=== PATIENT | female | born 1995 | race Caucasian/White ===

== ENCOUNTER 2017-04-12 21:53 | Emergency (ER) | payer OTHER ==
[~2017-04-12] VITALS: Ht 154.9 cm; Wt 76.4 kg
[2017-04-12] MEDS ORDERED: PRE-TAB3 PO (22:01)
--- NOTE | 2017-04-13 00:30 | REPUSA ---
CLINICAL HISTORY: determination. TECHNIQUE: Transabdominal ultrasound of the pelvis was performed. FINDINGS: Single, live intrauterine gestation. Estimated gestational age is 9 weeks and one day. pole measurement 24 mm. heart rate 173 beats per minute. No subchorionic hemorrhage was identified. No significant abnormality is identified in the maternal adnexa and cul-de-sac regions. Estimated delivery date on 11/14/2017. IMPRESSION: Single, live intrauterine gestation. No abnormality seen.
[2017-04-13] MEDS ORDERED: MACR100C43 PO (01:06)
[2017-04-13 01:12] VITALS: BP 107/67
[2017-04-13] MEDS ORDERED: NITROFURANTOIN (MACROBID) 100 MG CAP PO ONE (01:15)
== END 2017-04-13 01:16 | disposition home or self-care (01) ==
LOC: M ED 21:53
DX: O23.41 Unspecified infection of urinary tract in pregnancy, first trimester (principal); O26.891 Other specified pregnancy related conditions, first trimester; N89.9 Noninflammatory disorder of vagina, unspecified; O99.611 Diseases of the digestive system complicating pregnancy, first trimester; K58.9 Irritable bowel syndrome, unspecified; Z3A.09 9 weeks gestation of pregnancy; Z88.8 Allergy status to other drugs, medicaments and biological substances

== ENCOUNTER 2018-06-13 00:09 | Emergency (ER) | payer OTHER ==
[2018-06-13 00:40] LABS: CONTROL LINE UCG INT CTR LINE PRESENT; URINE PREG TEST POSITIVE (NEGATIVE)
[2018-06-13 00:43] LABS: KETONE, URINE AUTO RFX NEGATIVE (NEGATIVE); LEUKOCYTE ESTERASE UR AUTO RFX NEGATIVE (NEGATIVE); MUCUS, URINE RFX SMALL (NEGATIVE); NITRITE, URINE AUTO RFX NEGATIVE (NEGATIVE); RBC, URINE AUTO RFX 1 /HPF (0-3); SPECIFIC GRAVITY UR AUTO RFX 1.029 (1.002-1.035); SQUAM EPITHELIAL CELL UR AURFX 2 /HPF (0-6); WBC, URINE AUTO RFX 1 /HPF (0-3)
[2018-06-13 01:29] LABS: BASO % 0.5 % (0.0-1.0); EOS # 0.2 10^3/uL (0.0-0.50); EOS % 2.4 % (0.0-3.0); HEMATOCRIT 34.9 % (36.0-47.0); HEMOGLOBIN 11.5 g/dl (12.0-15.5); IMMATURE GRANULOCYTE % 0.2 % (0-3.0); LYMPH # 4.2 10^3/uL (1.5-6.5); LYMPH % 47.3 % (24.0-44.0); MEAN CORPUSCULAR HEMOGLOBIN 29.9 pg (27.0-33.0); MEAN CORPUSCULAR VOLUME 90.6 fl (80.0-96.0); MONO # 0.7 10^3/uL (0.0-0.8); MONO % 8.1 % (0.0-5.0); NEUTROPHILS # 3.7 10^3/uL (1.8-7.7); NEUTROPHILS % 41.5 % (36.0-66.0); PLATELET COUNT, AUTOMATED 306 10^3/uL (150-450); RED BLOOD COUNT 3.85 10^6/uL (4.00-5.40); RED CELL DISTRIBUTION WIDTH 12.4 % (11.5-14.5); WHITE BLOOD COUNT 8.8 10^3/uL (4.0-10.0)
[2018-06-13 02:04] LABS: HCG, SERUM QUANTITATIVE 340 MIU/ML
[2018-06-13 04:51] LABS: CHLAMYDIA DNA AMPLIFICATION NEGATIVE (NEGATIVE); GC DNA AMPLIFICATION NEGATIVE (NEGATIVE)
== END 2018-06-13 06:00 | disposition home or self-care (01) ==
LOC: M ED 00:09
DX: O20.0 Threatened abortion (principal); Z79.899 Other long term (current) drug therapy; Z88.8 Allergy status to other drugs, medicaments and biological substances
CPT/HCPCS: 76801

== ENCOUNTER → 2018-06-15 | Outpatient (CLI) | payer OTHER ==
[~2018-06-15] MED LIST: MACR100C43 PO; PRE-TAB3 PO
== END ==
LOC: M LAB 15:58
PROVIDERS: ATTEND Emergency Medicine
DX: O20.0 Threatened abortion (principal)

== ENCOUNTER → 2018-10-30 | Outpatient (CLI) | payer OTHER | LOC: M SMT 14:47 | PROVIDERS: ATTEND Advanced Practice Midwife | DX: Z34.82 Encounter for supervision of other normal pregnancy, second trimester (principal); Z3A.00 Weeks of gestation of pregnancy not specified ==

== ENCOUNTER → 2018-11-08 | Outpatient (CLI) | payer OTHER ==
[2018-11-08 17:22] LABS: BASO % 0.3 % (0.0-1.0); EOS # 0.1 10^3/uL (0.0-0.50); EOS % 1.4 % (0.0-3.0); HEMOGLOBIN 9.6 g/dl (12.0-15.5); LYMPH # 1.9 10^3/uL (1.5-6.5); LYMPH % 22.2 % (24.0-44.0); MEAN CORPUSCULAR HEMOGLOBIN 29.6 pg (27.0-33.0); MEAN CORPUSCULAR VOLUME 95.7 fl (80.0-96.0); MONO # 0.5 10^3/uL (0.0-0.8); MONO % 6.1 % (0.0-5.0); NEUTROPHILS # 6.1 10^3/uL (1.8-7.7); NEUTROPHILS % 69.7 % (36.0-66.0); PLATELET COUNT, AUTOMATED 318 10^3/uL (150-450); RED BLOOD COUNT 3.24 10^6/uL (4.00-5.40); WHITE BLOOD COUNT 8.7 10^3/uL (4.0-10.0)
== END ==
LOC: M SMT 13:04
PROVIDERS: ATTEND Advanced Practice Midwife
DX: Z34.82 Encounter for supervision of other normal pregnancy, second trimester (principal); Z3A.00 Weeks of gestation of pregnancy not specified

== ENCOUNTER 2018-11-22 13:20 | Outpatient (CLI) | payer OTHER ==
[~2018-11-22] VITALS: Ht 154.9 cm; Wt 84.2 kg
[2018-11-22] MEDS ORDERED: ACETAMINOPHEN 500 MG TAB PO ONE (15:30)
--- NOTE | 2018-11-24 00:44 | NUR ---
L&D Triage Note DOS 11/22/2018 S: 23yo at 28w3d presents to L&D after a fall where she landed on her side. Denies vaginal bleeding, LOF or ctx. Reports active movement. O: vss, AF Cat 1 tracing with prolong monitoring Gen: well appearing abd: gravid, nttp A/P: 23yo s/p fall with reassuring status -home with PTL precautions -f/u at next OB appt Magui Soler MD
== END 2018-11-22 15:30 | disposition home or self-care (01) ==
LOC: M LDO 13:20
PROVIDERS: ATTEND Obstetrics & Gynecology
DX: Z04.3 Encounter for examination and observation following other accident (principal); W19.XXXA Unspecified fall, initial encounter; Y92.009 Unspecified place in unspecified non-institutional (private) residence as the place of occurrence of the external cause; Y93.89 Activity, other specified; Y99.8 Other external cause status; Z3A.28 28 weeks gestation of pregnancy

== ENCOUNTER 2019-01-14 12:15 | Outpatient (CLI) | payer OTHER ==
[~2019-01-14] VITALS: Ht 154.9 cm; Wt 88.9 kg
[2019-01-14 12:40] VITALS: BP 109/67
== END 2019-01-14 13:15 | disposition home or self-care (01) ==
LOC: M LDO 12:15
PROVIDERS: ATTEND Specialist
DX: O26.893 Other specified pregnancy related conditions, third trimester (principal); R10.9 Unspecified abdominal pain; O47.03 False labor before 37 completed weeks of gestation, third trimester; Z3A.36 36 weeks gestation of pregnancy

== ENCOUNTER → 2019-01-18 | Outpatient (REF) | payer OTHER | LOC: M LAB REF 13:21 | PROVIDERS: ATTEND Advanced Practice Midwife | DX: Z34.83 Encounter for supervision of other normal pregnancy, third trimester (principal) ==

== ENCOUNTER 2019-02-05 15:20 | Inpatient (IN) | payer OTHER ==
[~2019-02-05] VITALS: Ht 154.9 cm; Wt 90.7 kg
[2019-02-05 15:36] VITALS: BP 130/68
[2019-02-05] MEDS ORDERED: LACTATED RINGER'S 1000 ML IV STA (16:00)
[2019-02-05] MEDS ORDERED: SLF 3 ML SYR IV PRN (16:15)
[2019-02-05] MEDS ORDERED: FERR325T3 PO (16:22)
[2019-02-05 16:52] LABS: HEMATOCRIT 26.2 % (36.0-47.0); HEMOGLOBIN 8.3 g/dl (12.0-15.5); MEAN CORPUSCULAR HEMOGLOBIN 27.3 pg (27.0-33.0); MEAN CORPUSCULAR HGB CONC 31.7 g/dl (32.0-36.5); MEAN CORPUSCULAR VOLUME 86.2 fl (80.0-96.0); PLATELET COUNT, AUTOMATED 274 10^3/uL (150-450); RED BLOOD COUNT 3.04 10^6/uL (4.00-5.40); WHITE BLOOD COUNT 9.1 10^3/uL (4.0-10.0)
[2019-02-05] MEDS: miSOPROStol 50 MCG 1/2 TAB (S0191) PO SCH ×2 (17:25→21:53)
[2019-02-05] MEDS ORDERED: SLF 3 ML SYR IV SCH (22:00)
[2019-02-06] VITALS (9 sets, daily range): BP systolic 111–141; BP diastolic 63–94
[2019-02-06] MEDS ORDERED: BUTORPHANOL 2 MG/ML INJ (J0595) IV ONE ×2 (01:00→09:00)
[2019-02-06] MEDS ORDERED: PROMETHAZINE INJ 25 MG/ML VIAL (J2550) IM ONE (01:00)
[2019-02-06] MEDS: miSOPROStol 50 MCG 1/2 TAB (S0191) PO SCH (02:00)
--- NOTE | 2019-02-06 06:55 | IPNPDOC ---
Obstetrical Progress Note Date of Service Feb 06, 2019 Subjective Patient reports feeling contractions. Objective Vital Signs Date Time Temp Pulse Resp B/P (MAP) Pulse Ox O2 Delivery O2 Flow Rate FiO2 02/06/19 01:06 20 02/05/19 15:36 97.2 121 130/68 (88) Assessment Heart Rate (FHR): 120 Variability: Moderate Accelerations: Positive Decelerations: None Heart Rate Tracing: Category I Tocometer Contractions: Yes Frequency: regular Sterile Vaginal Examination Dilation: 1cm Effacement (%): other (75%) Station: -2 Cervical Consistency: Medium Cervical Position: Middle Postion/Presentation: Cephalic presentation Assessment and Plan EGA at Admission: 39.1 Weeks & Days 39.2 weeks today Status: Reassuring Group B Streptococcus: Negative Anticipate: Vaginal Delivery Additional Comments Hayes bulb inserted with 50/40 cc of NS. IV Pitocin to be started per order. Patient tolerated procedure well. MICHAEL ALBERT CNM Feb 06, 2019 06:55
[2019-02-06] MEDS ORDERED: OXYTOCIN DRIP 30 UNITS in IV 1 EA IV SCH (07:00)
[2019-02-06] MEDS: LR 1,000 ML IV SCH ×2 (08:45→19:02)
[2019-02-06] MEDS ORDERED: PROMETHAZINE INJ 25 MG/ML VIAL (J2550) IV ONE (09:00)
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
[2019-02-06] MEDS ORDERED: FENTANYL 2MCG/ML ROPIVACAINE 0.2% IN 0.9% NACL 100ML IVBAG As Ordered ONE (16:35)
[2019-02-06] MEDS ORDERED: ePHEDrine SULFATE 25 MG/5 ML(5MG/ML) SYRINGE IV PRN (17:45)
[2019-02-06] MEDS ORDERED: diphenhydrAMINE INJ 50MG/ML VIAL (J1200) IV PRN (17:45)
[2019-02-06] MEDS ORDERED: EPIDURAL COMMENT XX SCH (17:45)
[2019-02-06] MEDS ORDERED: EPIDURAL/PCA KEYS XX PRN (17:45)
[2019-02-06] MEDS ORDERED: ONDANSETRON 4MG/2ML VIAL (J2405) IV PRN (17:45)
[2019-02-06] MEDS ORDERED: FENTANYL/ROPIVACAINE/NACL BAG 100 ML EPIDURAL SCH (17:45)
[2019-02-06] MEDS ORDERED: NALOXONE INJ 0.4 MG/1 ML VIAL (J2310) IV PRN (17:45)
[2019-02-06] MEDS ORDERED: REFRIGERATOR IV KEYS XX PRN (17:45)
[2019-02-07] MEDS ORDERED: DOCUSATE SODIUM 100 MG CAP PO PRN (00:15)
[2019-02-07] MEDS ORDERED: OXYTOCIN DRIP 30 UNITS in IV 1 EA IV ONE (00:15)
[2019-02-07] MEDS ORDERED: METHYLERGONOVINE MALEATE 0.2 MG TAB PO PRN (00:15)
[2019-02-07] MEDS ORDERED: IBUPROFEN 600 MG TAB PO PRN (00:15)
[2019-02-07] MEDS ORDERED: ACETAMINOPHEN TAB 650MG DOSE (2X325MG) PO PRN (00:15)
[2019-02-07] MEDS ORDERED: ACETAMINOPHEN 500 MG TAB PO PRN (00:15)
[2019-02-07] MEDS ORDERED: DIBUCAINE 1% OINTMENT 30GM TOP PRN (00:15)
[2019-02-07] MEDS ORDERED: ONDANSETRON 4MG/2ML VIAL (J2405) IV PRN (00:15)
[2019-02-07] MEDS ORDERED: RHOGAM 300 MCG (1500 IU) INJ (J2790) IM SCH (00:15)
[2019-02-07] MEDS ORDERED: MEASLES,MUMPS,RUBELLA VACCINE INJ (MMR-II) (90707) SC SCH (00:15)
[2019-02-07 00:19] VITALS: BP 127/74
[2019-02-07 00:34] VITALS: BP 131/76
[2019-02-07 00:49] VITALS: BP 129/78
[2019-02-07 03:13] VITALS: BP 116/67
[2019-02-07 06:08] VITALS: BP 98/51
[2019-02-07] MEDS ORDERED: LIDOCAINE 1% MDV 20ML VIAL As Ordered ONE (07:52)
[2019-02-07 07:53] LABS: HEMATOCRIT 22.6 % (36.0-47.0); MEAN CORPUSCULAR HEMOGLOBIN 26.4 pg (27.0-33.0); MEAN CORPUSCULAR VOLUME 85.3 fl (80.0-96.0); PLATELET COUNT, AUTOMATED 249 10^3/uL (150-450); RED BLOOD COUNT 2.65 10^6/uL (4.00-5.40); WHITE BLOOD COUNT 15.8 10^3/uL (4.0-10.0)
[2019-02-07] MEDS ORDERED: PERCOCET 5MG/325MG TAB PO PRN ×2 (08:15)
[2019-02-07] MEDS: PRENATAL VITAMINS CHEWABLE TABLET PO SCH (08:26)
[2019-02-07] MEDS: IBUPROFEN 800 MG TAB PO PRN ×2 (08:28→20:51)
[2019-02-07] MEDS: FERROUS GLUCONATE 324 MG TAB PO SCH ×3 (11:13→20:51)
[2019-02-07 18:00] VITALS: BP 110/62
--- NOTE | 2019-02-07 19:38 | DN ---
DATE: 02/06/2019 PREDELIVERY DIAGNOSIS: 39 weeks, labor induction. POSTDELIVERY DIAGNOSIS: Delivered. PROCEDURE: Spontaneous vaginal delivery. CARGO AGENT: Dr. Jaiden Balderas ANESTHESIA: Epidural. ESTIMATED BLOOD LOSS: 400 mL. FINDINGS: A 7-pound, 15-ounce male infant, scores of 9 and 9. DELIVERY SUMMARY: After a 40-minute second stage, the patient had spontaneous delivery of a 7-pound, 15-ounce male, scores 9 and 9, under epidural anesthesia. Nuchal cord times one was tight but was able to be reduced manually. The shoulders delivered with ease. The cried immediately and was handed to the mother. The cord was doubly clamped and cut. The placenta delivered spontaneously and appeared to be intact. The patient received IV pitocin immediately after delivery of the placenta. There were no vaginal lacerations present. Sponge counts were correct.
[2019-02-08 06:03] VITALS: BP 104/61
[2019-02-08] MEDS ORDERED: IBUP80TA PO (06:56)
[2019-02-08] MEDS ORDERED: FERR32TA PO (06:56)
[2019-02-08] MEDS: FERROUS GLUCONATE 324 MG TAB PO SCH (08:05)
[2019-02-08] MEDS: PRENATAL VITAMINS CHEWABLE TABLET PO SCH (08:05)
[2019-02-08] MEDS: IBUPROFEN 800 MG TAB PO PRN (08:06)
== END 2019-02-08 13:45 | disposition home or self-care (01) | DRG 560 ==
LOC: M LDI 15:20 → M OBS 02-07 02:46
PROVIDERS: ADMIT Advanced Practice Midwife; ATTEND Advanced Practice Midwife
PROC: 3E033VJ Introduction of Other Hormone into Peripheral Vein, Percutaneous Approach (ICD-10-PCS; 2019-02-05)
PROC: 10E0XZZ Delivery of Products of Conception, External Approach (ICD-10-PCS; principal; 2019-02-06)
DX: O26.899 Other specified pregnancy related conditions, unspecified trimester (principal); O99.344 Other mental disorders complicating childbirth; F32.9 Major depressive disorder, single episode, unspecified; Z37.0 Single live birth; Z3A.39 39 weeks gestation of pregnancy; D64.9 Anemia, unspecified; M62.059 Separation of muscle (nontraumatic), unspecified thigh; O99.02 Anemia complicating childbirth; Z14.1 Cystic fibrosis carrier; O69.89X0 Labor and delivery complicated by other cord complications, not applicable or unspecified

== ENCOUNTER → 2019-04-23 | Outpatient (CLI) | payer OTHER ==
[~2019-04-23] MED LIST changes: +FERR325T3 PO; +FERR32TA PO; +IBUP80TA PO
== END ==
LOC: M SMT 13:42
PROVIDERS: ATTEND Advanced Practice Midwife
DX: N91.2 Amenorrhea, unspecified (principal)

== ENCOUNTER → 2019-06-14 | Outpatient (REF) | payer OTHER ==
[2019-06-15 12:17] LABS: HCG, SERUM QUALITATIVE NEGATIVE (NEGATIVE)
== END ==
LOC: M SFHCLERA 19:35
PROVIDERS: ATTEND Physician Assistant Medical
DX: N92.6 Irregular menstruation, unspecified (principal)
CPT/HCPCS: 81025; 84703; G0463

== ENCOUNTER → 2019-07-09 | Outpatient (CLI) | payer OTHER | LOC: M PLALAB 14:48 | PROVIDERS: ATTEND Advanced Practice Midwife | DX: N91.2 Amenorrhea, unspecified (principal) ==

== ENCOUNTER → 2019-07-11 | Outpatient (CLI) | payer OTHER | LOC: M LRY 16:47 | PROVIDERS: ATTEND Advanced Practice Midwife | DX: N91.2 Amenorrhea, unspecified (principal) ==

== ENCOUNTER → 2019-08-18 | Outpatient (REF) | payer OTHER ==
[2019-08-18 19:07] LABS: HEMATOCRIT 33.5 % (36.0-47.0); MEAN CORPUSCULAR HEMOGLOBIN 28.2 pg (27.0-33.0); MEAN CORPUSCULAR HGB CONC 32.8 g/dl (32.0-36.5); MEAN CORPUSCULAR VOLUME 85.9 fl (80.0-96.0); PLATELET COUNT, AUTOMATED 333 10^3/uL (150-450); WHITE BLOOD COUNT 8.5 10^3/uL (4.0-10.0)
[2019-08-18 20:53] LABS: CHLAMYDIA DNA AMPLIFICATION NEGATIVE (NEGATIVE); GC DNA AMPLIFICATION NEGATIVE (NEGATIVE)
[2019-08-20 10:30] LABS: HEPATITIS B SURFACE ANTIGEN NEGATIVE (NEGATIVE); HEPATITIS C VIRUS ABY INDEX < 0.0 INDEX (<0.8); HIV 1&2 SCREEN CENTAUR NEGATIVE (NEGATIVE); RUBELLA IgG QUALITATIVE IMMUNE (IMMUNE)
== END ==
LOC: M PLALAB 16:08
PROVIDERS: ATTEND Advanced Practice Midwife
DX: Z34.81 Encounter for supervision of other normal pregnancy, first trimester (principal)

== ENCOUNTER → 2019-09-05 | Outpatient (REF) | payer OTHER | LOC: M SFHCWAGY 13:37 | PROVIDERS: ATTEND Advanced Practice Midwife | DX: O99.341 Other mental disorders complicating pregnancy, first trimester (principal); Z3A.00 Weeks of gestation of pregnancy not specified ==

== ENCOUNTER → 2019-10-22 | Outpatient (CLI) | payer OTHER ==
--- NOTE | 2019-10-23 01:16 | REP ---
OBSTETRIC SONOGRAPHY: HISTORY: Supervision of for anatomy. FINDINGS: Scanning through the gravid uterus demonstrates a single living intrauterine gestation in a transverse lie, head to the maternal left. motion is observed, and heart rate is recorded at 143 beats per minute. The placenta is posterior left lateral without evidence of previa or abruption, grade 0. Amniotic fluid is subjectively normal. Closed cervical length is 3.4 cm measured transabdominally. No extrauterine abnormality is observed. Exam quality is inhibited to some degree by position. heart views are less than optimally seen due to position. The following additional anatomic structures are identified and felt to be sonographically unremarkable: cranium, choroid plexus, cavum, cerebellum and posterior fossa, face and profile, diaphragm, left-sided stomach, abdominal wall cord insertion, three-vessel cord, kidneys and bladder, spine, upper and lower extremities. BIOMETRY CHART: BPD 4.6 cm = 19 weeks 6 days Head circumference 16.6 cm = 19 weeks 2 days Abdominal circumference 14.1 cm = 19 weeks 3 days Femur length 3.1 cm = 19 weeks 5 days Humeral length 2.9 cm = 19 weeks 4 days Cerebellar diameter 1.9 cm = 18 weeks 3 days HC/AC ratio Normal, 1.18 Cephalic index Normal, 0.78 Estimated weight 297 grams, 0 pounds 10 ounces, 51st percentile for 19 weeks 3 days. IMPRESSION: Single living intrauterine gestation at 19 weeks 3 days by today's composite criteria. NGHIA by today's criteria 03/14/2020. heart views less than optimally achieved. Transverse lie.
== END ==
LOC: M WHC 10:22
PROVIDERS: ATTEND Obstetrics & Gynecology
DX: O32.2XX0 Maternal care for transverse and oblique lie, not applicable or unspecified (principal); Z36.89 Encounter for other specified antenatal screening; Z3A.19 19 weeks gestation of pregnancy

== ENCOUNTER → 2019-11-29 | Outpatient (CLI) | payer OTHER ==
--- NOTE | 2019-11-30 02:42 | REP ---
Clinical: Anatomical evaluation. Comparison: 10/22/2019 . Findings: Examination demonstrates a single live intrauterine in breech presentation. motion is identified by technologist. Placenta is noted anterior and grade zero without evidence for placenta previa or abruption. Amniotic fluid volume is normal. Cervix measures 3.4 cm in length and appears closed. No evidence for nuchal cord. Gestational age by LMP 24 weeks 6 days with NGHIA 03/14/2020 . Gestational age by current measurements 25 weeks 0 days with NGHIA 03/13/2020 . FHR equals 130 beats per minute. Estimated weight 814 grams ( 63rd percentile). Impression: Single live intrauterine in breech presentation demonstrating appropriate interval growth. Limited evaluation of the heart/ventricular outflow tracts again noted due to positioning.
== END ==
LOC: M WHC 15:03
PROVIDERS: ATTEND Nurse Practitioner Women's Health
DX: Z36.2 Encounter for other antenatal screening follow-up (principal); O32.1XX0 Maternal care for breech presentation, not applicable or unspecified; Z3A.24 24 weeks gestation of pregnancy

== ENCOUNTER → 2019-12-21 | Outpatient (REF) | payer OTHER ==
[2019-12-21 19:18] LABS: HEMOGLOBIN 9.2 g/dl (12.0-15.5); MEAN CORPUSCULAR HEMOGLOBIN 27.3 pg (27.0-33.0); MEAN CORPUSCULAR HGB CONC 30.7 g/dl (32.0-36.5); PLATELET COUNT, AUTOMATED 318 10^3/uL (150-450); RED BLOOD COUNT 3.37 10^6/uL (4.00-5.40); WHITE BLOOD COUNT 9.8 10^3/uL (4.0-10.0)
== END ==
LOC: M PLALAB 12:31
PROVIDERS: ATTEND Nurse Practitioner Women's Health
DX: Z3A.22 22 weeks gestation of pregnancy (principal)

== ENCOUNTER → 2019-12-26 | Outpatient (CLI) | payer OTHER ==
--- NOTE | 2019-12-26 16:42 | REP ---
Clinical: Anatomical evaluation. Comparison: 11/29/2019 . Findings: Examination demonstrates a single live intrauterine in cephalic presentation. motion is identified by technologist. Placenta is noted a anterior and grade I without evidence for placenta previa or abruption. Amniotic fluid volume is normal. Cervix measures 3.3 cm in length and appears closed. No evidence for nuchal cord. Gestational age by LMP 98 weeks 5 days with NGHIA 03/14/2020 . Gestational age by current measurements 29 weeks 2 days with NGHIA 03/10/2020 . FHR equals 161 beats per minute. Estimated weight 1444 grams ( 67th percentile). Amniotic fluid index: 14.0 cm Anatomical assessment demonstrates normal structures including cranium, facial features, lungs, four-chamber heart/ventricular outflow tracts, diaphragm, stomach, cord insertion/three-vessel cord, kidneys/bladder. Impression: Single live intrauterine in cephalic presentation demonstrating appropriate interval growth. In conjunction with prior examination anatomical assessment is complete and normal.
== END ==
LOC: M WHC 15:31
PROVIDERS: ATTEND Nurse Practitioner Women's Health
DX: Z3A.26 26 weeks gestation of pregnancy (principal)

== ENCOUNTER 2020-02-16 14:55 | Outpatient (CLI) | payer OTHER ==
[~2020-02-16] VITALS: Ht 152.4 cm; Wt 92.4 kg
[2020-02-16] MEDS ORDERED: PRENTAB55 PO (15:10)
[2020-02-16 15:17] VITALS: BP 111/71
--- NOTE | 2020-02-16 16:28 | IPNPDOC ---
Obstetrical Progress Note Date of Service Feb 16, 2020 Subjective 24yo at 35 weeks 6 days with complaints of pressure and contractions. She reports irregular contractions throughout the night. She denies any vaginal bleeding or leakage fluid Objective Vital Signs Date Time Temp Pulse Resp B/P (MAP) Pulse Ox O2 Delivery O2 Flow Rate FiO2 02/16/20 15:17 98.2 96 18 111/71 (84) Assessment Variability: Moderate Accelerations: Positive Heart Rate Tracing: Category I Tocometer Contractions: No Sterile Vaginal Examination Dilation: None Cervical Consistency: Firm Cervical Position: Posterior Assessment and Plan Age: 24 : 3 Livin Additional Comments 24-year-old 3, para 2 at 35 weeks 6 days with irregular contractions, not in active labor. Reassuring status. With labor precautions, kick count instructions. -Follow-up at OB appointment on Tuesday MARIUSZ THURMAN MD. Feb 16, 2020 16:28
== END 2020-02-16 16:50 | disposition home or self-care (01) ==
LOC: M LDO 14:55
PROVIDERS: ATTEND Obstetrics & Gynecology
DX: O47.03 False labor before 37 completed weeks of gestation, third trimester (principal); Z3A.35 35 weeks gestation of pregnancy
CPT/HCPCS: 59025; G0378; G0463

== ENCOUNTER → 2020-02-18 | Outpatient (REF) | payer OTHER ==
[~2020-02-18] MED LIST changes: +AUGM875T28 PO; +FIOR1CAP PO; +PRENTAB55 PO; +TRAM50TA2 PO
== END ==
LOC: M LAB REF 13:00
PROVIDERS: ATTEND Advanced Practice Midwife
DX: Z34.83 Encounter for supervision of other normal pregnancy, third trimester (principal)

== ENCOUNTER 2020-03-06 03:11 | Outpatient (CLI) | payer OTHER ==
[~2020-03-06] VITALS: Ht 154.9 cm; Wt 94.7 kg
[~2020-03-06 03:11] MED LIST changes: -AUGM875T28 PO; -FIOR1CAP PO; -TRAM50TA2 PO
[2020-03-06 03:34] VITALS: BP 104/60
[2020-03-06] MEDS ORDERED: LR 1,000 ML IV ONE (04:15)
[2020-03-06 04:36] LABS: AMORPHOUS SEDIMENT SMALL (NEGATIVE); APPEARANCE, URINE TURBID (CLEAR); BACTERIA, URINE AUTO 3+ (NEGATIVE); BILIRUBIN, URINE AUTO NEGATIVE (NEGATIVE); BLOOD, URINE BLOOD NEGATIVE (NEGATIVE); COLOR, URINE YELLOW (YELLOW); GLUCOSE, URINE (UA) AUTO NEGATIVE (NEGATIVE); KETONE, URINE AUTO NEGATIVE (NEGATIVE); LEUKOCYTE ESTERASE, URINE AUTO 1+ (NEGATIVE); MUCUS, URINE LARGE (NEGATIVE); NITRITE, URINE AUTO NEGATIVE (NEGATIVE); PROTEIN, URINE AUTO 1+ mg/dL (NEGATIVE); RBC, URINE AUTO 0 /HPF (0-3); SQUAMOUS EPITHELIAL CELL UR AU 20 /HPF (0-6); WBC, URINE AUTO 17 /HPF (0-3)
[2020-03-06 04:58] VITALS: BP 114/61
== END 2020-03-06 05:05 | disposition home or self-care (01) ==
LOC: M LDO 03:11
PROVIDERS: ATTEND Advanced Practice Midwife
DX: O26.893 Other specified pregnancy related conditions, third trimester (principal); Z3A.38 38 weeks gestation of pregnancy
CPT/HCPCS: 59025; 81001; 87086; G0378; G0463

== ENCOUNTER 2020-03-10 09:26 | Inpatient (IN) | payer OTHER ==
[2020-03-10] VITALS (38 sets, daily range): BP systolic 101–137; BP diastolic 51–75
[~2020-03-10] VITALS: Ht 154.9 cm; Wt 95.5 kg
[2020-03-10] MEDS ORDERED: LACTATED RINGER'S 1000 ML IV STA (09:40)
--- NOTE | 2020-03-10 09:43 | HPEPDOC ---
Obstetrical History & Physical General Date of Admission Mar 10, 2020 at 09:26 Primary Care Physician: MICHAEL ALBERT CNM History of Present Illness Dalia is a 24-year-old female who is a at 39.1 weeks gestation with an of 03/16/20 based off of her LMP and consistent with her first trimester ultrasound. Her has been complicated by sciatica, anemia, anxiety and depression (which she was taking Zoloft 75 mg daily for and stopped mid ). She presents to L&D for an elective induction of labor. She reports occasional contractions and active movement. She denies vaginal bleeding and leaking of fluid. Chief Complaint: Induction of labor Age: 24 : 3 Term: 2 Pre-term: 0 Abortions: 0 Livin Care Care: Good Care Dating Final EDC: Mar 16, 2020 EGA at Admission: 39.1 Antepartum Course Height (inches): 61 Past Medical History Past Obstetrical History #1: Past Obstetrical History: Primgravida Date of Delivery: November 21, 2017 Type of Delivery: Spontaneous Vaginal Del. Sex of : Female (6 lbs 12 oz) Complications: No Past Obstetrical History #2: Past Obstetrical History: Multigravida Date of Delivery: Feb 06, 2019 Type of Delivery: Spontaneous Vaginal Del. Sex of Infant: Male (7 lbs 15 oz) Complications: Yes (retained placenta with manual removal) [employer] History: History of STD (chlamydia 2017) Past Medical History Medical History polyps-benign sciatica anemia Surgical History: Other (colonoscopy) Social History Social history , homemaker Marital Status: Family situation: Spouse/partner home Psychosocial History: Anxiety, Depression * Smoker: non-smoker Alcohol: Denies Drugs: denies Abuse Violence Screening Have you been hit/kicked/slapp: No Have you been sexually assault: No Allergies Coded Allergies: metronidazole (Verified Allergy, Mild, HIVES, 11/22/18) Medications Scheduled PRN Butalb/Acetaminophen/Caffeine (Fioricet 50-300-40 mg Capsule) 1 Each Capsule, 1 CAP PO DAILY PRN for MIGRAINE Miscellaneous Medications Ferrous Sulfate (Ferrous Sulfate) 325 Mg Tablet.dr, 325 MG PO Nmd380/Iron Fum/Folic/Docusate ( 19 Tablet) 1 Each Tablet, 1 TAB PO Physical Examination Physical Examination GENERAL: Alert and oriented times three. ABDOMEN: Gravid and non-tender to touch. FETUS: Is vertex (VTX) by sterile vaginal examination (SVE), fetus is vertex (VTX) by Edd. HEART RATE: Regular rate and rhythm. LUNGS: Clear to auscultation (CTA). EXTREMITIES: No edema. No clonus. Deep tendon reflexes (DTRs) + 2. Vital Signs/I&O BP: 106/56; HR: 93; Respiratory: 18; Temperature: 97.6 Laboratory Data CBC/BMP Item Value Date Time White Blood Count 7.0 10^3/uL 03/10/20 1039 Red Blood Count 3.10 10^6/uL L 03/10/20 1039 Hemoglobin 7.5 g/dl L 03/10/20 1039 Hematocrit 25.1 % L 03/10/20 1039 Mean Corpuscular Volume 81.0 fl 03/10/20 1039 Mean Corpuscular Hemoglobin 24.2 pg L 03/10/20 1039 Mean Corpuscular Hemoglobin Concent 29.9 g/dl L 03/10/20 1039 Red Cell Distribution Width 15.9 % H 03/10/20 1039 Platelet Count 239 10^3/uL 03/10/20 1039 Urine Culture: No Growth Pertinent Laboratoy Data Blood Type: A+ RBC Antibody Screen: Negative HIV: Negative Hepatitis B: Negative Hepatitis C: Negative Rapid Plasma Reagin: Nonreactive Rubella: Immune Chlamydia/Gonorrhea: Negative Group B Streptococcus: Negative Glucose Tolerance Test: 108 Vaginal Examination Dilation: 2cm Effacement: 60% Station: -2 Cervical Consistency: Soft Cervical Position: Anterior Presentation: Cephalic presentation Position: Vertex (occiput) Assessment Heart Rate (FHR): 120 Variability: Moderate Accelerations: Positive Tocometer Contractions: Yes Frequency: irregular Multi-drug resistant Organism: No history of MDRO Assessment/Plan Assessment IUP at 39.1 weeks gestation Category I FHR tracing GBS negative elective induction of labor Plan Admit to Labor and delivery. Counseled on induction of labor including use of Cytotec, mejia bulb, and IV Pitocin for induction. Diet: regular then switch to clear liquid once IV Pitocin has been started. . Group B Streptococcus (GBS) negative. Labs and intravenous (IV) per unit protocol. Anesthesia consult per patient's request. Lactated Ringers (LR): Bolus 800 mL prior to epidural, then at 125 mL/hr. Anticipate cervical ripening. C-S as appropriate. MICHAEL ALBERT CNM Mar 10, 2020 09:43
[2020-03-10] MEDS ORDERED: miSOPROStol 50 MCG 1/2 TAB (S0191) PO SCH (10:30)
[2020-03-10 10:58] LABS: HEMATOCRIT 25.1 % (36.0-47.0); HEMOGLOBIN 7.5 g/dl (12.0-15.5); MEAN CORPUSCULAR HEMOGLOBIN 24.2 pg (27.0-33.0); MEAN CORPUSCULAR HGB CONC 29.9 g/dl (32.0-36.5); PLATELET COUNT, AUTOMATED 239 10^3/uL (150-450)
[2020-03-10] MEDS ORDERED: FIOR1CAP PO (11:25)
--- NOTE | 2020-03-10 15:34 | IPNPDOC ---
Obstetrical Progress Note Date of Service Mar 10, 2020 Subjective Patient reports painful contractions. Objective Vital Signs Date Time Temp Pulse Resp B/P (MAP) Pulse Ox O2 Delivery O2 Flow Rate FiO2 03/10/20 14:13 98.0 86 16 110/60 (77) 03/10/20 09:55 98 Room Air Assessment Heart Rate (FHR): 120 Variability: Moderate Accelerations: Positive Decelerations: None Heart Rate Tracing: Category I Tocometer Contractions: Yes Frequency: regular Sterile Vaginal Examination Dilation: 4 cm Effacement (%): other (75%) Station: -2 Cervical Consistency: Soft Cervical Position: Anterior Postion/Presentation: Cephalic presentation Assessment and Plan Age: 24 Status: Reassuring Group B Streptococcus: Negative Anticipate: Vaginal Delivery Additional Comments Patient to start on IV Pitocin. She is considering Stadol and Phenergan for pain management. MICHAEL ALBERT CNM Mar 10, 2020 15:34
[2020-03-10] MEDS ORDERED: PROMETHAZINE INJ 25 MG/ML VIAL (J2550) IV ONE (15:45)
[2020-03-10] MEDS ORDERED: OXYTOCIN DRIP 30 UNITS in IV 1 EA IV SCH (15:45)
[2020-03-10] MEDS ORDERED: BUTORPHANOL 2 MG/ML INJ (J0595) IV ONE (15:45)
[2020-03-10] MEDS ORDERED: FAMOTIDINE 20 MG TAB PO ONE (16:00)
[2020-03-10] MEDS: LR 1,000 ML IV SCH ×2 (16:10→23:34)
--- NOTE | 2020-03-10 20:32 | IPNPDOC ---
Obstetrical Progress Note Date of Service Mar 10, 2020 Subjective Patient reports painful contractions. She had IV pain medication to help with labor pain. Objective Vital Signs Date Time Temp Pulse Resp B/P (MAP) Pulse Ox O2 Delivery O2 Flow Rate FiO2 03/10/20 18:39 78 16 114/64 (81) 03/10/20 18:30 98.5 03/10/20 09:55 98 Room Air Assessment Heart Rate (FHR): 115 Variability: Moderate Accelerations: Positive Decelerations: None Heart Rate Tracing: Category I Tocometer Contractions: Yes Frequency: regular Sterile Vaginal Examination Dilation: 4 cm Effacement (%): other (75%) Station: -2 Cervical Consistency: Soft Postion/Presentation: Cephalic presentation Assessment and Plan Status: Reassuring Anticipate: Vaginal Delivery Additional Comments IV Pitocin is at 4 mu/min. AROM to a moderate amount of clear fluid. Patient tolerated well. MICHAEL ALBERT CNM Mar 10, 2020 20:32
[2020-03-10] MEDS ORDERED: FENTANYL 2MCG/ML ROPIVACAINE 0.2% IN 0.9% NACL 100ML IVBAG As Ordered ONE (21:10)
[2020-03-10] MEDS ORDERED: ePHEDrine SULFATE 25 MG/5 ML(5MG/ML) SYRINGE IV PRN (21:46)
[2020-03-10] MEDS ORDERED: diphenhydrAMINE 50MG/ML VIAL (J1200) IV PRN (21:46)
[2020-03-10] MEDS ORDERED: EPIDURAL COMMENT XX SCH (21:46)
[2020-03-10] MEDS ORDERED: REFRIGERATOR IV KEYS XX PRN (21:46)
[2020-03-10] MEDS ORDERED: NALOXONE INJ 0.4MG/1ML VIAL (J2310 PER 1MG) IV PRN (21:46)
[2020-03-10] MEDS ORDERED: EPIDURAL/PCA KEYS XX PRN (21:46)
[2020-03-10] MEDS ORDERED: LACTATED RINGER'S 1000 ML IV PRN (21:46)
[2020-03-10] MEDS ORDERED: ONDANSETRON 4MG/2ML VIAL IV PRN (21:46)
[2020-03-10] MEDS ORDERED: FENTANYL/ROPIVACAINE/NACL BAG 100 ML EPIDURAL SCH (21:46)
[2020-03-11] VITALS (7 sets, daily range): BP systolic 108–135; BP diastolic 57–76
[2020-03-11] MEDS ORDERED: OXYTOCIN DRIP 30 UNITS in IV 1 EA IV SCH (02:06)
--- NOTE | 2020-03-11 02:13 | DNPDOC ---
[facility] Delivery Note Delivery Note DATE OF DELIVERY: 03/11/20 at 0148 PREDELIVERY DIAGNOSIS: 39-2/7 weeks' gestation. POST DELIVERY DIAGNOSIS: Delivered. PROCEDURE: Spontaneous vaginal delivery. QUALITY ASSURANCE MONITOR: Michael Edwards CNM, DAIJA ANESTHESIA: epidural. ESTIMATED BLOOD LOSS: 250 mL. FINDINGS: 8 pounds 3 ounces, 3720 grams; female , Score 8/8, nuchal cord times 1 loose with terminal meconium, velamentous cord insertion. DELIVERY SUMMARY: Patient is now a who presented to L&D for an elective induction of labor. Dalia received a dose of Cytotec and IV Pitocin for induction of labor. She requested an epidural for pain management. The patient progressed to fully dilated at 0145 and pushed to a living female in the LOUIE position with restitution to LOT. A nuchal cord was noted and the fetus delivered through the cord. The anterior shoulder delivered with ease and the corpus immediately followed. The baby was placed skin to skin active and crying with stimulation. The cord was clamped x2 after pulsation ceased and cut by the father of the baby. A 3-vessel cord was noted. The placenta delivered intact and spontaneously and was noted to have a velamentous cord insertion. Uterine hemostasis was achieved via rapid infusion of IV Pitocin and fundal massage. The vagina, perineum and cervix were inspected and found to be intact. Mom plans to bottle feed and breastfeed. They are naming her Sruthi. Both mom and baby are in stable condition. All counts of instruments and sponges are correct. MICHAEL EDWARDS CNM Mar 11, 2020 02:13
[2020-03-11] MEDS ORDERED: ACETAMINOPHEN TAB 650MG DOSE (2X325MG) PO PRN (02:15)
[2020-03-11] MEDS ORDERED: DOCUSATE SODIUM 100 MG CAP PO PRN (02:15)
[2020-03-11] MEDS ORDERED: MEASLES,MUMPS,RUBELLA VACCINE INJ (MMR-II) (90707) SC SCH (02:15)
[2020-03-11] MEDS ORDERED: RHOGAM 300 MCG (1500 IU) INJ (J2790) IM SCH (02:15)
[2020-03-11] MEDS ORDERED: METHYLERGONOVINE MALEATE 0.2 MG TAB PO PRN (02:15)
[2020-03-11] MEDS ORDERED: ANUSOL HC CREAM 30GM TOP PRN (02:15)
[2020-03-11] MEDS ORDERED: IBUPROFEN 800 MG TAB PO PRN (02:15)
[2020-03-11] MEDS ORDERED: IBUPROFEN 600MG TAB PO PRN (02:15)
[2020-03-11] MEDS ORDERED: DIBUCAINE 1% OINTMENT 30GM TOP PRN (02:15)
[2020-03-11] MEDS: ACETAMINOPHEN 500 MG TAB PO PRN ×3 (03:52→18:15)
[2020-03-11] MEDS: PRENATAL VITAMINS CHEWABLE TABLET PO SCH (08:26)
[2020-03-12] MEDS: ACETAMINOPHEN 500 MG TAB PO PRN (01:36)
[2020-03-12 06:06] VITALS: BP 101/57
--- NOTE | 2020-03-12 07:08 | IPNPDOC ---
Progress Note Date of Service: Mar 12, 2020 Day#: 1 Progress Note SUBJECT: Dalia is a 24-year-old 3 now Para 3 status post uncomplicated spontaneous vaginal delivery. She has been ambulating, voiding spontaneously without issue and tolerating regular diet. Breast feeding without issue. Reports lochia is minimal/decreasing. Patient is ambulating well. OBJECTIVE: VITAL SIGNS: Within normal limits, afebrile. Alert and oriented times three. Breath sounds clear to auscultation. Heart rate: Regular rate and rhythm, no murmurs, rubs or gallops. Abdomen: Fundus firm at U-2. Soft, NTTP. ASSESSMENT: 24yo status post uncomplicated spontaneous vaginal delivery. Vitals within normal limits, afebrile, hemodynamically stable with no evidence of infection. PLAN: 1. Discharge to home today. 2. Tylenol and Motrin for pain. 3. Encourage breast feeding and ambulation. 4. Routine PP visit in 6 weeks in clinic. 5. Discussed return precautions. VS, I&O, 24H, Fishbone Vital Signs/I&O Vital Signs Date Time Temp Pulse Resp B/P (MAP) Pulse Ox O2 Delivery O2 Flow Rate FiO2 03/12/20 06:06 97.9 72 18 101/57 (72) 03/11/20 18:00 98 03/11/20 06:00 Room Air I&O- Last 24 Hours up to 6 AM 03/12/20 06:00 Intake Total 300 ml Balance 300 ml JONATHAN HARVEY DO Mar 12, 2020 07:08
[2020-03-12] MEDS: PRENATAL VITAMINS CHEWABLE TABLET PO SCH (09:26)
== END 2020-03-12 10:45 | disposition home or self-care (01) | DRG 807 ==
LOC: M LDI 09:26 → M OBS 03-11 03:25
PROVIDERS: ADMIT Advanced Practice Midwife; ATTEND Advanced Practice Midwife
PROC: 3E033VJ Introduction of Other Hormone into Peripheral Vein, Percutaneous Approach (ICD-10-PCS; 2020-03-10)
PROC: 10E0XZZ Delivery of Products of Conception, External Approach (ICD-10-PCS; principal; 2020-03-11)
DX: O99.02 Anemia complicating childbirth (principal); Z37.0 Single live birth; Z3A.39 39 weeks gestation of pregnancy; F41.9 Anxiety disorder, unspecified; F32.9 Major depressive disorder, single episode, unspecified; O99.344 Other mental disorders complicating childbirth; D64.9 Anemia, unspecified; M54.40 Lumbago with sciatica, unspecified side; O26.899 Other specified pregnancy related conditions, unspecified trimester; Z88.8 Allergy status to other drugs, medicaments and biological substances; O77.0 Labor and delivery complicated by meconium in amniotic fluid; O69.81X0 Labor and delivery complicated by cord around neck, without compression, not applicable or unspecified

== ENCOUNTER 2020-05-09 01:33 | Emergency (ER) | payer OTHER ==
[~2020-05-09] VITALS: Ht 154.9 cm; Wt 88.1 kg
[~2020-05-09 01:33] MED LIST changes: +FIOR1CAP PO
[2020-05-09] MEDS ORDERED: NS 1,000 ML IV ONE (02:00)
[2020-05-09 02:09] LABS: BASO % 0.5 % (0.0-1.0); EOS # 0.1 10^3/uL (0.0-0.5); EOS % 1.7 % (0.0-3.0); HEMATOCRIT 32.6 % (36.0-47.0); HEMOGLOBIN 9.8 g/dl (12.0-15.5); LYMPH # 3.5 10^3/uL (1.5-5.0); LYMPH % 44.7 % (24.0-44.0); MEAN CORPUSCULAR HEMOGLOBIN 24.7 pg (27.0-33.0); MEAN CORPUSCULAR HGB CONC 30.1 g/dl (32.0-36.5); MEAN CORPUSCULAR VOLUME 82.3 fl (80.0-96.0); MONO # 0.6 10^3/uL (0.0-0.8); MONO % 7.6 % (0.0-5.0); NEUTROPHILS # 3.5 10^3/uL (1.5-8.5); NEUTROPHILS % 45.4 % (36.0-66.0); PLATELET COUNT, AUTOMATED 288 10^3/uL (150-450); RED BLOOD COUNT 3.96 10^6/uL (4.00-5.40); WHITE BLOOD COUNT 7.8 10^3/uL (4.0-10.0)
[2020-05-09 02:51] LABS: ALBUMIN 3.7 GM/DL (3.2-5.2); ALT/SGPT 37 U/L (12-78); BILIRUBIN,DIRECT < 0.1 MG/DL (0.0-0.2); BILIRUBIN,TOTAL 0.3 MG/DL (0.2-1.0); LIPASE 93 U/L (73-393); TOTAL PROTEIN 6.8 GM/DL (6.4-8.2)
[2020-05-09] MEDS ORDERED: KETOROLAC 30 MG/ML 1ML VIAL IV ONE (03:15)
[2020-05-09] MEDS ORDERED: ONDANSETRON 4MG/2ML VIAL IV ONE (03:15)
--- NOTE | 2020-05-09 03:30 | REPVR ---
PROCEDURE INFORMATION: Exam: CT Abdomen And Pelvis With Contrast Exam date and time: 05/09/2020 2:28 AM Age: 25 years old Clinical indication: Abdominal pain; Localized; Right lower quadrant (rlq); Additional info: Rlq abd pain TECHNIQUE: Imaging protocol: Computed tomography of the abdomen and pelvis with intravenous contrast. Radiation optimization: All CT scans at this facility use at least one of these dose optimization techniques: automated exposure control; mA and/or kV adjustment per patient size (includes targeted exams where dose is matched to clinical indication); or iterative reconstruction. Contrast material: ISO; Contrast volume: 100 ml; Contrast route: INTRAVENOUS (IV); COMPARISON: US PELVIC NON-OB COMPLETE 2016-06-05 00:41 FINDINGS: Liver: Normal. No mass. Gallbladder and bile ducts: Normal. No calcified stones. No ductal dilation. Pancreas: Normal. No ductal dilation. Spleen: Normal. No splenomegaly. Adrenal glands: Normal. No mass. Kidneys and ureters: Normal. No hydronephrosis. Stomach and bowel: Unremarkable. No obstruction. No mucosal thickening. Appendix: Slightly prominent appendix on axial image 84 with maximal diameter 9 mm. No significant periappendiceal stranding or fluid. By size, could represent acute appendicitis, however absence of stranding mitigates against. If clinical picture uncertain, consider short-term follow-up to assess for any progression or resolution. Intraperitoneal space: Unremarkable. No free air. No significant fluid collection. Vasculature: Unremarkable. No abdominal aortic aneurysm. Lymph nodes: Unremarkable. No enlarged lymph nodes. Urinary bladder: Unremarkable as visualized. Reproductive: Unremarkable as visualized. Bones/joints: Unremarkable. No acute fracture. Soft tissues: Small fat protruding umbilical hernia. IMPRESSION: Slightly prominent appendix on axial image 84 with maximal diameter 9 mm. No significant periappendiceal stranding or fluid. By size, could represent acute appendicitis, however absence of stranding mitigates against. If clinical picture uncertain, consider short-term follow-up to assess for any progression or resolution. Electronically signed by: Taqueria Delarosa On 05/09/2020 03:30:17 AM
--- NOTE | 2020-05-09 04:38 | REPVR ---
PROCEDURE INFORMATION: Exam: US Nonobstetric Pelvis; Complete Exam date and time: 05/09/2020 4:27 AM Age: 25 years old Clinical indication: Pelvic pain; Additional info: Right adnexal tenderness TECHNIQUE: Imaging protocol: Transabdominal pelvic nonobstetric ultrasound. Complete exam. Real time ultrasound with image documentation. COMPARISON: CT ABD/PEL W/IV CONTRAST ONLY 2020-05-09 02:41 FINDINGS: Uterus/cervix: Uterus is normal. Endometrial stripe is normal. Right adnexa: Ovary is normal. No mass. Normal blood flow. Left adnexa: Ovary is normal. No mass. Normal blood flow. Intraperitoneal space: No intraperitoneal free fluid. Urinary bladder: Normal. IMPRESSION: Negative. Electronically signed by: Taqueria Delarosa On 05/09/2020 04:37:56 AM
[2020-05-09 06:08] LABS: CHLAMYDIA DNA AMPLIFICATION NEGATIVE (NEGATIVE); GC DNA AMPLIFICATION NEGATIVE (NEGATIVE)
[2020-05-09 06:15] VITALS: BP 121/62
[2020-05-09] MEDS ORDERED: TRAM50TA2 PO (14:50)
[2020-05-09] MEDS ORDERED: AUGM875T28 PO (14:50)
== END 2020-05-09 06:30 | disposition home or self-care (01) ==
LOC: M ED 01:33
DX: R10.9 Unspecified abdominal pain (principal); Z88.8 Allergy status to other drugs, medicaments and biological substances
CPT/HCPCS: 74177; 76856; 80047; 80076; 81001; 83690; 84702; 85025; 87210; 87491; 87591; 93041; 93976; 96361; 96374; 99284; J1885; J2405

== ENCOUNTER 2020-05-09 11:57 | Emergency (ER) | payer OTHER ==
[~2020-05-09] VITALS: Ht 154.9 cm; Wt 88.7 kg
[2020-05-09 13:53] LABS: BASO % 0.3 % (0.0-1.0); EOS # 0.1 10^3/uL (0.0-0.5); EOS % 1.3 % (0.0-3.0); HEMATOCRIT 35.7 % (36.0-47.0); HEMOGLOBIN 10.4 g/dl (12.0-15.5); LYMPH # 1.8 10^3/uL (1.5-5.0); LYMPH % 24.9 % (24.0-44.0); MEAN CORPUSCULAR HEMOGLOBIN 24.2 pg (27.0-33.0); MEAN CORPUSCULAR HGB CONC 29.1 g/dl (32.0-36.5); MONO # 0.5 10^3/uL (0.0-0.8); MONO % 6.7 % (0.0-5.0); NEUTROPHILS # 4.8 10^3/uL (1.5-8.5); NEUTROPHILS % 66.5 % (36.0-66.0); PLATELET COUNT, AUTOMATED 304 10^3/uL (150-450); WHITE BLOOD COUNT 7.2 10^3/uL (4.0-10.0)
[2020-05-09 14:06] LABS: INR 0.85; PROTHROMBIN TIME 11.8 SECONDS (12.5-14.3)
[2020-05-09] MEDS ORDERED: AMPICILLIN SOD/SULBACTAM SOD 3 GM in D5W MINI-BAG PLUS 100 ML IV ONE (14:30)
[2020-05-09 14:34] LABS: ALBUMIN 3.7 GM/DL (3.2-5.2); BILIRUBIN,DIRECT 0.1 MG/DL (0.0-0.2); BILIRUBIN,TOTAL 0.4 MG/DL (0.2-1.0); TOTAL PROTEIN 6.6 GM/DL (6.4-8.2)
[2020-05-09] MEDS ORDERED: TRAM50TA2 PO (14:50)
[2020-05-09] MEDS ORDERED: AUGM875T28 PO (14:50)
[2020-05-09 15:47] VITALS: BP 118/70
--- NOTE | 2020-05-12 12:35 | ED PDOC ---
Post-Departure Follow-Up dr maxwell faxed formal report of ct abd/p for fu Zulema Farris MD May 12, 2020 12:35
== END 2020-05-09 15:50 | disposition home or self-care (01) ==
LOC: M ED 11:57
DX: R10.9 Unspecified abdominal pain (principal); F17.200 Nicotine dependence, unspecified, uncomplicated

== ENCOUNTER → 2020-07-25 | Outpatient (CLI) | payer OTHER ==
[~2020-07-25] MED LIST changes: +AUGM875T28 PO; +TRAM50TA2 PO
--- NOTE | 2020-07-25 18:18 | REPVR ---
PROCEDURE INFORMATION: Exam: CT Maxillofacial Without Contrast, Sinus Exam date and time: 07/25/2020 5:48 PM Age: 25 years old Clinical indication: Condition or disease; Other: Chronic max sinusitis TECHNIQUE: Imaging protocol: CT Maxillofacial without contrast. Focus on the sinuses. Radiation optimization: All CT scans at this facility use at least one of these dose optimization techniques: automated exposure control; mA and/or kV adjustment per patient size (includes targeted exams where dose is matched to clinical indication); or iterative reconstruction. COMPARISON: No relevant prior studies available. FINDINGS: Paranasal sinuses: There is no mucoperiosteal thickening or air-fluid levels in the paranasal sinuses. There is mild rightward deviation of the nasal septum. There are large eboni bullosa of both middle turbinates. The right ostiomeatal complex is narrowed by large Gauri cells as is the left. A probable prior left antral window has been performed. Orbital cavity: Orbits are normal. Globes are unremarkable. Bones/joints: There appears to be mild sclerosis of the margins of both maxillary antra consistent with chronic paranasal sinusitis. Soft tissues: Unremarkable. Auditory system: The middle ear cavities and mastoid air cells are clear. IMPRESSION: No mucoperiosteal thickening or air-fluid levels in the paranasal sinuses. Electronically signed by: Esperanza La On 07/25/2020 18:18:03 PM
== END ==
LOC: M RAD 17:17
PROVIDERS: ATTEND Otolaryngology
DX: J32.0 Chronic maxillary sinusitis (principal)

== ENCOUNTER → 2020-08-04 | Outpatient (CLI) | payer OTHER ==
--- NOTE | 2020-08-05 10:35 | REP ---
INDICATION: R10.2 PELVIC PAIN,Z30.431 CHECK IUD COMPARISON: 05/09/2020 TECHNIQUE: Transabdominal pelvic ultrasound followed by transvaginal examination for better evaluation of the endometrium and adnexa with color evaluation of the ovaries. FINDINGS: Bladder is completely collapsed. Normal anteverted uterus measures 8.6 x 4.2 x 6.4 cm. The endometrial complex measures 6.6 mm thickness. IUD in central satisfactory position. No uterine or endometrial abnormalities noted. Bilateral ovaries are normal in appearance and vascularity without evidence for torsion. Right ovary measures 3.1 x 2.5 x 2.1 cm; left ovary measures 3.3 x 1.9 x 2.4 cm. IMPRESSION: Normal pelvic ultrasound. IUD in satisfactory position. <Electronically signed by Kameron Saenz > 08/05/20 [id number]
== END ==
LOC: M WHC 12:36
PROVIDERS: ATTEND Advanced Practice Midwife
DX: Z30.431 Encounter for routine checking of intrauterine contraceptive device (principal); R10.2 Pelvic and perineal pain

== ENCOUNTER → 2020-09-13 | Outpatient (CLI) | payer OTHER ==
[~2020-09-13] MED LIST changes: +FLUT22IN INH; +PROAAER10 INH
== END ==
LOC: M LABSMTC 09:51
PROVIDERS: ATTEND Anesthesiology
DX: Z01.812 Encounter for preprocedural laboratory examination (principal); Z20.822 Contact with and (suspected) exposure to COVID-19

== ENCOUNTER 2020-09-18 07:43 | Day surgery (SDC) | payer OTHER ==
[~2020-09-18] VITALS: Ht 154.9 cm; Wt 90.3 kg
[~2020-09-18 07:43] MED LIST changes: +LR 1,000 ML IV SCH; +dexameTHASONE 4 MG/ML 1ML VIAL (J1100 PER 1MG) IV ONE
[2020-09-18] MEDS ORDERED: EPINEPHrine 1MG/ML INJ 30ML MD-VIAL As Ordered ONE (09:34)
[2020-09-18] MEDS ORDERED: METHYLENE BLUE 0.5% (5MG/ML) 10 ML AMP (PROVAYBLUE) As Ordered ONE (09:34)
[2020-09-18] MEDS ORDERED: LIDOCAINE W/EPINEPHRINE 1% 20ML VIAL As Ordered ONE (09:34)
[2020-09-18] MEDS ORDERED: fentaNYL 100 MCG/2 ML INJECTION (J3010) As Ordered ONE (09:40)
[2020-09-18] MEDS ORDERED: dexameTHASONE 4 MG/ML 1ML VIAL (J1100 PER 1MG) As Ordered ONE (09:40)
[2020-09-18] MEDS ORDERED: ROCURONIUM BROMIDE 50 MG/5 ML VIAL As Ordered ONE (09:40)
[2020-09-18] MEDS ORDERED: ONDANSETRON 4MG/2ML VIAL As Ordered ONE (09:40)
[2020-09-18] MEDS ORDERED: SUGAMMADEX SODIUM 500 MG/5 ML VIAL (BRIDION) As Ordered ONE (09:40)
[2020-09-18] MEDS ORDERED: LIDOCAINE 2% 100MG/5ML SDV (FOR ANES.) As Ordered ONE (09:40)
[2020-09-18] MEDS ORDERED: MIDAZOLAM INJ 2MG/2ML VIAL (J2250 PER 1MG) As Ordered ONE (09:40)
[2020-09-18] MEDS ORDERED: propofoL 200 MG/20 ML VIAL As Ordered ONE (09:40)
[2020-09-18] MEDS ORDERED: LACRILUBE (AKWA TEARS) OPHTH OINT 3.5 GM As Ordered ONE (10:25)
[2020-09-18] MEDS ORDERED: SODIUM CHLORIDE 0.9% NASAL GEL 15GM (AYR) As Ordered ONE (10:47)
[2020-09-18] MEDS ORDERED: fentaNYL 100 MCG/2 ML INJECTION (J3010) IV PRN (11:40)
[2020-09-18] MEDS ORDERED: ONDANSETRON 4MG/2ML VIAL IV PRN (11:40)
[2020-09-18] MEDS ORDERED: PERCOCET 5MG/325MG TAB PO PRN (11:40)
[2020-09-18] MEDS ORDERED: LR 1,000 ML IV SCH (11:40)
[2020-09-18] MEDS ORDERED: METOCLOPRAMIDE INJ 10MG/2ML VIAL (J2765 PER 1) IV PRN (11:40)
[2020-09-18] MEDS ORDERED: LEVALBUTEROL 1.25 MG/0.5 ML CONCENTRATE NEB INH ONE (11:55)
[2020-09-18 12:20] VITALS: BP 139/96
--- NOTE | 2020-09-22 11:08 | RO ---
OPERATIVE NOTE DATE OF OPERATION: 09/18/2020 PREOPERATIVE DIAGNOSIS: Deviated nasal septum to the right and hypertrophy of the inferior nasal turbinate. POSTOPERATIVE DIAGNOSIS: PROCEDURES PERFORMED: 1. Septoplasty. 2. Coblation of right and left inferior nasal turbinates. SURGEON: Santos Garland MD PUBLIC ADDRESS ANNOUNCER: ANESTHESIA: General. CLINICAL PREAMBLE: This 25-year-old woman presented to the office with history of chronic nasal congestion, worse in the right side. She has history of nasal trauma. Physical examination revealed deviated nasal septum to the right side as well as hypertrophy of the left and right inferior nasal turbinates. Management options including surgery listed above have been discussed, the patient understood and consented to the procedure. DESCRIPTION OF PROCEDURE: The patient was identified in preoperative holding and brought to the operating room in stable condition. She was positioned on the operating table, the patient received general anesthesia followed by oroendotracheal intubation by anesthesia. The patient was prepped and draped in usual fashion for the procedure. Both sides of the nasal cavity were then packed using pledgets soaked in 1:1000 Epinephrine. After waiting period the pledgets were removed. The L-strut of the nose was palpated and found to be stable. The nasal septum was then infiltrated with 1% Lidocaine with 1:100,000 Epinephrine. Left hemitransfixion incision was made. Mucoperichondrial and mucoperiosteal flap was developed on the left side of the nasal septum. The bony cartilaginous junction was identified and disarticulated. The deviated portion of the perpendicular plate and vomer bone were isolated and resected. Deviated portion of the nasal septum was also isolated and resected. At this time the nasal septum had returned to midline position and the nasopharynx was now visible from both sides of nasal cavity. Hemostasis was achieved. The left hemitransfixion incision was then closed using 3-0 chromic. Attention was turned to performing coblation of the nasal turbinates. Using the Turbinator wand, the coblation set at 3 and coagulation set at 4 the stab incision was made over the anterior surface of the right inferior nasal turbinate. Three passes were made in the submucosal plane of the right inferior nasal turbinate to allow coblation of the turbinate. The same procedure was carried out to coblate the left inferior nasal turbinate in the submucosal plane as well. The nasal cavity was packed using Alvarez stent placed into the left and right nasal cavity and secured anteriorly using the 3-0 nylon suture. At the end of the procedure sponge and instrument counts were correct. No complications were encountered. Estimated blood loss was approximately 50 mL. General anesthesia was reversed. The patient was extubated and brought to recovery room in stable condition.
== END 2020-09-18 13:50 | disposition home or self-care (01) ==
LOC: M SDC 07:43
PROVIDERS: ATTEND Otolaryngology
DX: J34.2 Deviated nasal septum (principal); J34.3 Hypertrophy of nasal turbinates; J45.909 Unspecified asthma, uncomplicated; F41.9 Anxiety disorder, unspecified; F32.9 Major depressive disorder, single episode, unspecified; Z79.51 Long term (current) use of inhaled steroids; Z88.1 Allergy status to other antibiotic agents
CPT/HCPCS: 30140; 30520; 81025; 88300; J1100; J2250; J2405; J3010; Q9968

== ENCOUNTER → 2022-08-03 | Outpatient (CLI) | payer OTHER ==
[~2022-08-03] MED LIST changes: -LR 1,000 ML IV SCH; -dexameTHASONE 4 MG/ML 1ML VIAL (J1100 PER 1MG) IV ONE
== END ==
LOC: M WHC 14:06
PROVIDERS: ATTEND Advanced Practice Midwife
DX: Z34.92 Encounter for supervision of normal pregnancy, unspecified, second trimester (principal); Z3A.20 20 weeks gestation of pregnancy

== ENCOUNTER → 2022-08-03 | Outpatient (CLI) | payer OTHER ==
[2022-08-03 16:23] LABS: HEMATOCRIT 34.9 % (36.0-47.0); HEMOGLOBIN 11.3 g/dl (12.0-15.5); MEAN CORPUSCULAR HEMOGLOBIN 30.5 pg (27.0-33.0); MEAN CORPUSCULAR HGB CONC 32.4 g/dl (32.0-36.5); MEAN CORPUSCULAR VOLUME 94.1 fl (80.0-96.0); PLATELET COUNT, AUTOMATED 251 10^3/uL (150-450); RED BLOOD COUNT 3.71 10^6/uL (4.00-5.40); WHITE BLOOD COUNT 6.5 10^3/uL (4.0-10.0)
[2022-08-03 21:01] LABS: HIV 1&2 SCREEN CENTAUR NEGATIVE (NEGATIVE)
== END ==
LOC: M PLALAB 10:52
PROVIDERS: ATTEND Advanced Practice Midwife
DX: Z34.91 Encounter for supervision of normal pregnancy, unspecified, first trimester (principal); Z3A.00 Weeks of gestation of pregnancy not specified

== ENCOUNTER 2022-08-19 15:21 | Outpatient (CLI) | payer OTHER ==
[~2022-08-19] VITALS: Ht 154.9 cm; Wt 79.1 kg
[2022-08-19 15:47] VITALS: BP 109/61
[2022-08-19] MEDS ORDERED: CLAR5TAB11 PO (15:52)
[2022-08-19] MEDS ORDERED: HOME MED LIST COMPLETE! XX SCH (15:55)
[2022-08-19 16:13] LABS: BASO % 0.2 % (0.0-1.0); EOS % 0.2 % (0.0-3.0); HEMATOCRIT 30.2 % (36.0-47.0); HEMOGLOBIN 10.3 g/dl (12.0-15.5); LYMPH # 0.2 10^3/uL (1.5-5.0); LYMPH % 3.9 % (24.0-44.0); MEAN CORPUSCULAR HEMOGLOBIN 31.1 pg (27.0-33.0); MEAN CORPUSCULAR HGB CONC 34.1 g/dl (32.0-36.5); MEAN CORPUSCULAR VOLUME 91.2 fl (80.0-96.0); MONO # 0.3 10^3/uL (0.0-0.8); MONO % 4.9 % (2.0-8.0); NEUTROPHILS # 5.5 10^3/uL (1.5-8.5); NEUTROPHILS % 90.3 % (36.0-66.0); PLATELET COUNT, AUTOMATED 207 10^3/uL (150-450); RED BLOOD COUNT 3.31 10^6/uL (4.00-5.40); WHITE BLOOD COUNT 6.1 10^3/uL (4.0-10.0)
[2022-08-19 16:45] LABS: ALBUMIN 3.2 G/DL (3.2-5.2); ALKALINE PHOSPHATASE 48 U/L (46-116); ALT/SGPT 21 U/L (7.0-40); AST/SGOT 24 U/L (<34); BILIRUBIN,TOTAL 0.5 MG/DL (0.3-1.2); BLOOD UREA NITROGEN 6 MG/DL (9-23); CALCIUM LEVEL 8.4 MG/DL (8.5-10.1); CARBON DIOXIDE LEVEL 21 MMOL/L (20-31); CHLORIDE LEVEL 102 MMOL/L (98-107); CREATININE FOR GFR 0.53 MG/DL (0.55-1.30); GLOMERULAR FILTRATION RATE > 60.0 (>60); GLUCOSE, FASTING 119 MG/DL (60-100); POTASSIUM SERUM 3.4 MMOL/L (3.5-5.1); SODIUM LEVEL 133 MMOL/L (136-145); TOTAL PROTEIN 6.2 G/DL (5.7-8.2)
[2022-08-19 16:58] VITALS: BP 112/64
[2022-08-19 16:59] VITALS: BP 107/64
[2022-08-19 17:00] VITALS: BP 113/58
[2022-08-19] MEDS ORDERED: ONDANSETRON 4MG 2ML VIAL IV PRN (17:00)
[2022-08-19] MEDS ORDERED: ACETAMINOPHEN 500 MG TAB PO PRN (17:00)
[2022-08-19] MEDS ORDERED: guaiFENesin DM LIQ 10ML UD PO ONE (17:15)
[2022-08-19 17:22] LABS: APPEARANCE, URINE CLEAR (CLEAR); BACTERIA, URINE AUTO NEGATIVE (NEGATIVE); BILIRUBIN, URINE AUTO NEGATIVE (NEGATIVE); BLOOD, URINE BLOOD NEGATIVE (NEGATIVE); COLOR, URINE YELLOW (YELLOW); GLUCOSE, URINE (UA) AUTO NEGATIVE (NEGATIVE); KETONE, URINE AUTO 2+ mg/dL (NEGATIVE); LEUKOCYTE ESTERASE, URINE AUTO NEGATIVE (NEGATIVE); MUCUS, URINE SMALL (NEGATIVE); NITRITE, URINE AUTO NEGATIVE (NEGATIVE); PROTEIN, URINE AUTO NEGATIVE (NEGATIVE); RBC, URINE AUTO 1 /HPF (0-3); SPECIFIC GRAVITY URINE AUTO 1.014 (1.002-1.035); SQUAMOUS EPITHELIAL CELL UR AU 2 /HPF (0-6); UROBILINOGEN, URINE AUTO 0.2 mg/dL (0.0-2.0); WBC, URINE AUTO 1 /HPF (0-3)
[2022-08-19] MEDS ORDERED: LR 1,000 ML IV ONE (18:00)
[2022-08-19 18:41] VITALS: BP 109/53
[2022-08-19] MEDS ORDERED: MULTIVITAMIN -ADULT INJECTION 10 ML, THIAMINE INJection 100 MG, FOLIC ACID 1 MG in NS 1... IV ONE (20:00)
== END 2022-08-19 20:38 | disposition home or self-care (01) ==
LOC: M LDO 15:21
PROVIDERS: ATTEND Obstetrics & Gynecology
DX: O98.512 Other viral diseases complicating pregnancy, second trimester (principal); U07.1 COVID-19; Z79.51 Long term (current) use of inhaled steroids; Z79.899 Other long term (current) drug therapy; Z3A.22 22 weeks gestation of pregnancy
CPT/HCPCS: 59025; 80053; 81001; 85025; 87486; 87581; 87633; 87798; 93005; 96374; G0463; J2405; J3411

== ENCOUNTER → 2022-09-03 | Outpatient (REF) | payer OTHER ==
[~2022-09-03] MED LIST changes: +CLAR5TAB11 PO
[2022-09-03 19:02] LABS: GC DNA AMPLIFICATION NEGATIVE (NEGATIVE)
== END ==
LOC: M SFHCWAGY 16:54
PROVIDERS: ATTEND Advanced Practice Midwife
DX: Z34.91 Encounter for supervision of normal pregnancy, unspecified, first trimester (principal)

== ENCOUNTER → 2022-09-30 | Outpatient (REF) | payer OTHER | LOC: M PLALAB 16:21 | PROVIDERS: ATTEND Advanced Practice Midwife | DX: Z34.83 Encounter for supervision of other normal pregnancy, third trimester (principal) ==

== ENCOUNTER → 2022-10-05 | Outpatient (CLI) | payer OTHER | LOC: M WHC 14:54 | PROVIDERS: ATTEND Specialist | DX: Z34.82 Encounter for supervision of other normal pregnancy, second trimester (principal) ==

== ENCOUNTER → 2022-10-12 | Outpatient (REF) | payer OTHER | LOC: M PLALAB 14:01 | PROVIDERS: ATTEND Advanced Practice Midwife | DX: Z34.83 Encounter for supervision of other normal pregnancy, third trimester (principal); Z3A.00 Weeks of gestation of pregnancy not specified ==

== ENCOUNTER → 2022-10-12 | Outpatient (CLI) | payer OTHER ==
[2022-10-12 14:12] LABS: HEMATOCRIT 30.8 % (36.0-47.0); HEMOGLOBIN 10.1 g/dl (12.0-15.5); MEAN CORPUSCULAR HGB CONC 32.8 g/dl (32.0-36.5); MEAN CORPUSCULAR VOLUME 94.5 fl (80.0-96.0); PLATELET COUNT, AUTOMATED 252 10^3/uL (150-450); RED BLOOD COUNT 3.26 10^6/uL (4.00-5.40); WHITE BLOOD COUNT 7.7 10^3/uL (4.0-10.0)
== END ==
LOC: M PLALAB 09:49
PROVIDERS: ATTEND Obstetrics & Gynecology
DX: Z34.92 Encounter for supervision of normal pregnancy, unspecified, second trimester (principal)

== ENCOUNTER → 2022-11-19 | Outpatient (CLI) | payer OTHER ==
[~2022-11-19] VITALS: Ht 154.9 cm; Wt 79.2 kg
[~2022-11-19] MED LIST changes: +ACET-683 PO; +ACET325C5 PO; +ACETAMINOPHEN 500 MG TAB PO ONE; +COLA100C5 PO; +IBUP-1022 PO; +OMEP10CASR PO; +OMEPRAZOLE 20MG CAP PO ONE; +ONDA4TAB6 PO; +ONDANSETRON 4MG ORAL DISINTEGRATING TAB PO ONE; +TUMS500C PO; +ZOLO50TA PO
[2022-11-19 14:37] LABS: HEMATOCRIT 27.7 % (36.0-47.0); HEMOGLOBIN 9.2 g/dl (12.0-15.5); MEAN CORPUSCULAR HEMOGLOBIN 30.6 pg (27.0-33.0); MEAN CORPUSCULAR HGB CONC 33.2 g/dl (32.0-36.5); PLATELET COUNT, AUTOMATED 234 10^3/uL (150-450); RED BLOOD COUNT 3.01 10^6/uL (4.00-5.40); WHITE BLOOD COUNT 6.9 10^3/uL (4.0-10.0)
[2022-11-19 14:59] LABS: ALBUMIN 2.7 G/DL (3.2-5.2); ALKALINE PHOSPHATASE 82 U/L (46-116); ALT/SGPT 10 U/L (7.0-40); AST/SGOT 12 U/L (<34); BILIRUBIN,TOTAL 0.6 MG/DL (0.3-1.2); BLOOD UREA NITROGEN 8 MG/DL (9-23); CALCIUM LEVEL 7.8 MG/DL (8.5-10.1); CARBON DIOXIDE LEVEL 25 MMOL/L (20-31); CHLORIDE LEVEL 104 MMOL/L (98-107); CREATININE FOR GFR 0.53 MG/DL (0.55-1.30); GLOMERULAR FILTRATION RATE > 60.0 (>60); GLUCOSE, FASTING 92 MG/DL (60-100); POTASSIUM SERUM 3.8 MMOL/L (3.5-5.1); SODIUM LEVEL 135 MMOL/L (136-145); TOTAL PROTEIN 5.6 G/DL (5.7-8.2)
== END ==
LOC: M LDO 12:29
PROVIDERS: ATTEND Advanced Practice Midwife
DX: O26.893 Other specified pregnancy related conditions, third trimester (principal); R10.10 Upper abdominal pain, unspecified; R11.0 Nausea; R10.2 Pelvic and perineal pain; Z3A.35 35 weeks gestation of pregnancy

== ENCOUNTER 2022-11-28 14:59 | Outpatient (CLI) | payer OTHER ==
[~2022-11-28] VITALS: Ht 154.9 cm; Wt 79.3 kg
[~2022-11-28 14:59] MED LIST changes: -ACET-683 PO; -ACET325C5 PO; -ACETAMINOPHEN 500 MG TAB PO ONE; -COLA100C5 PO; -IBUP-1022 PO; -OMEP10CASR PO; -OMEPRAZOLE 20MG CAP PO ONE; -ONDA4TAB6 PO; -ONDANSETRON 4MG ORAL DISINTEGRATING TAB PO ONE; -TUMS500C PO
[2022-11-28] MEDS ORDERED: ACET325C5 PO (15:13)
[2022-11-28] MEDS ORDERED: TUMS500C PO (15:13)
== END 2022-11-28 16:19 | disposition home or self-care (01) ==
LOC: M LDO 14:59
PROVIDERS: ATTEND Obstetrics & Gynecology
DX: O47.03 False labor before 37 completed weeks of gestation, third trimester (principal); Z3A.36 36 weeks gestation of pregnancy; Z88.8 Allergy status to other drugs, medicaments and biological substances; Z79.899 Other long term (current) drug therapy
CPT/HCPCS: 59025; G0463

== ENCOUNTER → 2022-11-30 | Outpatient (REF) | payer OTHER ==
[~2022-11-30] MED LIST changes: +ACET325C5 PO; +TUMS500C PO
== END ==
LOC: M SFHCWAGY 17:00
PROVIDERS: ATTEND Obstetrics & Gynecology
DX: Z34.93 Encounter for supervision of normal pregnancy, unspecified, third trimester (principal)

== ENCOUNTER 2022-12-17 08:19 | Inpatient (IN) | payer OTHER ==
[~2022-12-17] VITALS: Ht 154.9 cm; Wt 78.9 kg
[2022-12-17] VITALS (28 sets, daily range): BP systolic 99–135; BP diastolic 58–82
[2022-12-17] MEDS ORDERED: OXYTOCIN DRIP 30 UNITS in IV 1 EA IV PRN (09:20)
[2022-12-17] MEDS ORDERED: METHYLERGONOVINE MALEATE 0.2MG/ML 1ML VIAL IM PRN (09:20)
[2022-12-17] MEDS ORDERED: TRANEXAMIC ACID INJection 1,000 MG in NS 100 ML IV PRN (09:20)
[2022-12-17] MEDS ORDERED: LIDOCAINE 1% MDV 20ML VIAL INFIL PRN (09:20)
[2022-12-17] MEDS ORDERED: CARBOPROST TROMETHAMINE 250 MCG/ML AMP IM PRN (09:20)
[2022-12-17] MEDS ORDERED: ONDA4TAB6 PO (09:22)
[2022-12-17] MEDS ORDERED: OMEP10CASR PO (09:22)
[2022-12-17 09:27] LABS: HEMATOCRIT 28.3 % (36.0-47.0); HEMOGLOBIN 9.4 g/dl (12.0-15.5); MEAN CORPUSCULAR HEMOGLOBIN 30.4 pg (27.0-33.0); MEAN CORPUSCULAR HGB CONC 33.2 g/dl (32.0-36.5); MEAN CORPUSCULAR VOLUME 91.6 fl (80.0-96.0); PLATELET COUNT, AUTOMATED 277 10^3/uL (150-450); RED BLOOD COUNT 3.09 10^6/uL (4.00-5.40); WHITE BLOOD COUNT 8.5 10^3/uL (4.0-10.0)
[2022-12-17] MEDS: miSOPROStol 50MCG 1/2 TABLET PO SCH ×2 (10:16→14:00)
[2022-12-17] MEDS ORDERED: OXYTOCIN DRIP 30 UNITS in IV 1 EA IV SCH (14:20)
[2022-12-17] MEDS: LR 1,000 ML IV SCH ×3 (14:34→23:05)
[2022-12-17] MEDS ORDERED: CALCIUM CARBONATE 500 MG CHEW U/D PO PRN (15:05)
[2022-12-17] MEDS ORDERED: NALBUPHINE HCL 10 MG/ML 1ML AMP IV ONE (18:45)
[2022-12-17] MEDS ORDERED: PROMETHAZINE 25MG/ML 1ML VIAL IV ONE (18:45)
[2022-12-17] MEDS ORDERED: EPIDURAL/PCA KEYS XX PRN (22:30)
[2022-12-17] MEDS ORDERED: ePHEDrine SULFATE 25 MG/5 ML(5MG/ML) SYRINGE IVP PRN (22:30)
[2022-12-17] MEDS ORDERED: NALOXONE INJ 0.4MG/1ML VIAL IV PRN (22:30)
[2022-12-17] MEDS ORDERED: FENTANYL/ROPIVACAINE/NACL BAG 100 ML EPIDURAL SCH (22:30)
[2022-12-17] MEDS ORDERED: ONDANSETRON 4MG 2ML VIAL IV PRN (22:30)
[2022-12-17] MEDS ORDERED: LR 500 ML IV PRN (22:30)
[2022-12-17] MEDS ORDERED: diphenhydrAMINE 50MG/ML VIAL IV PRN (22:30)
[2022-12-18] VITALS (15 sets, daily range): BP systolic 97–136; BP diastolic 56–83; O2SAT 68–100
[2022-12-18] MEDS ORDERED: ACETAMINOPHEN 500 MG TAB PO PRN (02:05)
[2022-12-18] MEDS ORDERED: RHOGAM 300MCG (1500IU) INJ IM SCH (02:05)
[2022-12-18] MEDS ORDERED: DOCUSATE SODIUM 100MG CAPSULE PO PRN (02:05)
[2022-12-18] MEDS ORDERED: ANUSOL HC CREAM 30GM TOP PRN (02:05)
[2022-12-18] MEDS ORDERED: METHYLERGONOVINE MALEATE 0.2 MG TAB PO PRN (02:05)
[2022-12-18] MEDS ORDERED: MOM 30ML SUSPENSION UDC PO PRN (02:05)
[2022-12-18] MEDS ORDERED: DIBUCAINE 1% OINTMENT 30GM TOP PRN (02:05)
[2022-12-18] MEDS ORDERED: IBUPROFEN 600MG TAB PO PRN (02:05)
[2022-12-18] MEDS: ACETAMINOPHEN TAB 650MG DOSE (2X325MG) PO PRN ×2 (06:10→23:26)
[2022-12-18] MEDS: PRENATAL VITAMINS CHEWABLE TABLET PO SCH (08:25)
[2022-12-18] MEDS: SERTRALINE HCL 50 MG TAB PO SCH (08:25)
[2022-12-18] MEDS: IBUPROFEN 800 MG TAB PO PRN ×2 (08:26→18:07)
[2022-12-19 06:00] VITALS: BP 128/68; O2SAT 98
[2022-12-19] MEDS: PRENATAL VITAMINS CHEWABLE TABLET PO SCH (09:09)
[2022-12-19] MEDS: SERTRALINE HCL 50 MG TAB PO SCH (09:09)
[2022-12-19] MEDS ORDERED: ACET-683 PO (10:56)
[2022-12-19] MEDS ORDERED: IBUP-1022 PO (10:56)
[2022-12-19] MEDS ORDERED: COLA100C5 PO (10:56)
[2022-12-20] MEDS ORDERED: MEASLES,MUMPS,RUBELLA VACCINE INJ (MMR-II) SC.IMMUN ONE (09:00)
== END 2022-12-19 13:10 | disposition home or self-care (01) | DRG 560 ==
LOC: M LDI 08:19 → M OBS 12-18 03:54
PROVIDERS: ADMIT Advanced Practice Midwife; ATTEND Advanced Practice Midwife
PROC: 3E033VJ Introduction of Other Hormone into Peripheral Vein, Percutaneous Approach (ICD-10-PCS; 2022-12-17)
PROC: 3E0DXGC Introduction of Other Therapeutic Substance into Mouth and Pharynx, External Approach (ICD-10-PCS; 2022-12-17)
PROC: 10E0XZZ Delivery of Products of Conception, External Approach (ICD-10-PCS; principal; 2022-12-18)
DX: O99.344 Other mental disorders complicating childbirth (principal); F32.A Depression, unspecified; Z37.0 Single live birth; Z3A.39 39 weeks gestation of pregnancy

== ENCOUNTER 2023-11-17 07:06 | Day surgery (SDC) | payer OTHER ==
[~2023-11-17] VITALS: Ht 154.9 cm; Wt 76.4 kg
[~2023-11-17 07:06] MED LIST changes: +ACET-683 PO; +COLA100C5 PO; +IBUP-1022 PO; +OMEP10CASR PO; +ONDA4TAB6 PO
[2023-11-17] MEDS ORDERED: LR 1,000 ML IV SCH ×2 (07:25→09:50)
[2023-11-17] MEDS ORDERED: propofoL 200 MG/20 ML VIAL As Ordered ONE (08:13)
[2023-11-17] MEDS ORDERED: KETOROLAC 60MG 2ML VIAL As Ordered ONE (08:13)
[2023-11-17] MEDS ORDERED: MIDAZOLAM INJ 2MG/2ML VIAL As Ordered ONE (08:13)
[2023-11-17] MEDS ORDERED: ROCURONIUM BROMIDE 50MG/5ML VIAL As Ordered ONE (08:13)
[2023-11-17] MEDS ORDERED: LIDOCAINE 2% 100MG/5ML SDV (FOR ANES.) As Ordered ONE (08:13)
[2023-11-17] MEDS ORDERED: SUGAMMADEX SODIUM 500 MG/5 ML VIAL (BRIDION) As Ordered ONE (08:13)
[2023-11-17] MEDS ORDERED: ONDANSETRON 4MG 2ML VIAL As Ordered ONE (08:13)
[2023-11-17] MEDS ORDERED: fentaNYL 100 MCG/2 ML INJECTION As Ordered ONE (08:14)
[2023-11-17] MEDS ORDERED: dexmedeTOMIDine (4MCG/ML)200MCG/50ML BTL (PRECEDEX) As Ordered ONE (08:49)
[2023-11-17 09:01] LABS: HEMATOCRIT 36.7 % (36.0-47.0); HEMOGLOBIN 12.3 g/dl (12.0-15.5); MEAN CORPUSCULAR HEMOGLOBIN 30.2 pg (27.0-33.0); MEAN CORPUSCULAR HGB CONC 33.5 g/dl (32.0-36.5); MEAN CORPUSCULAR VOLUME 90.2 fl (80.0-96.0); PLATELET COUNT, AUTOMATED 235 10^3/uL (150-450); RED BLOOD COUNT 4.07 10^6/uL (4.00-5.40); WHITE BLOOD COUNT 5.8 10^3/uL (4.0-10.0)
[2023-11-17] MEDS ORDERED: ACETAMINOPHEN 1000MG 100ML IV BAG As Ordered ONE (09:36)
[2023-11-17] MEDS ORDERED: diphenhydrAMINE 50MG/ML VIAL IV PRN (09:50)
[2023-11-17] MEDS ORDERED: MEPERIDINE 25 MG/ML 1ML VIAL IV PRN (09:50)
[2023-11-17] MEDS ORDERED: METOCLOPRAMIDE INJ 10MG/2ML VIAL IV PRN (09:50)
[2023-11-17] MEDS ORDERED: ONDANSETRON 4MG 2ML VIAL IV PRN (09:50)
[2023-11-17] MEDS ORDERED: PERC5TAB12 PO (09:59)
[2023-11-17] MEDS: fentaNYL 100 MCG/2 ML INJECTION IV PRN (10:17)
[2023-11-17] MEDS: oxyCODONE 5MG TAB PO PRN (10:25)
[2023-11-17] MEDS: HYDROMORPHONE HCL 0.5 MG/ 0.5 ML SYRINGE IV PRN (10:26)
[2023-11-17 10:51] VITALS: BP 117/63; TEMP 97.3
[2023-11-17 11:31] VITALS: O2SAT 98
== END 2023-11-17 12:13 | disposition home or self-care (01) ==
LOC: M SDC 07:06
PROVIDERS: ATTEND Obstetrics & Gynecology
DX: Z30.2 Encounter for sterilization (principal); J45.909 Unspecified asthma, uncomplicated; F32.A Depression, unspecified; F41.9 Anxiety disorder, unspecified; Z79.899 Other long term (current) drug therapy; Z88.8 Allergy status to other drugs, medicaments and biological substances
CPT/HCPCS: 36415; 58661; 81025; 85027; 86850; 86900; 86901; 88302; J0131; J0665; J1100; J1170; J1885; J2250; J2405; J3010